=== PATIENT | male | born 1955 | race Caucasian/White ===

== ENCOUNTER 2016-12-23 14:05 | Emergency (ER) | payer OTHER ==
[2016-12-23] MEDS ORDERED: METOPROLOL 5 MG/5 ML VIAL IVP STA (14:32)
[2016-12-23] MEDS ORDERED: NITROGLYCERIN 2% PASTE TOP STA (14:32)
[2016-12-23 14:35] LABS: BASOPHILS % (AUTO) 0.5 %; EOSINOPHILS # (AUTO) 0.1 10^3/uL (0.0-0.7); EOSINOPHILS % (AUTO) 1.1 %; HGB - HEMOGLOBIN 16.9 g/dL (14.0-18.0); LYMPHOCYTES # (AUTO) 3.2 10^3/uL (1.5-3.5); LYMPHOCYTES % (AUTO) 42.2 %; MEAN CORPUSCULAR HEMOGLOBIN 30.4 pg (27.0-31.0); MEAN CORPUSCULAR HGB CONC 33.8 g/dL (32.0-36.0); MEAN PLATELET VOLUME 8.1 fL (7.4-11.4); MONOCYTES # (AUTO) 0.9 10^3/uL (0.0-1.0); MONOCYTES % (AUTO) 11.3 %; NEUTROPHILS # (AUTO) 3.4 10^3/uL (1.5-6.6); NEUTROPHILS % (AUTO) 44.9 %; RED BLOOD COUNT 5.56 10^6/uL (4.70-6.10); RED CELL DISTRIBUTION WIDTH 13.7 % (12.0-15.0); UNCORRECTED WHITE BLOOD COUNT 7.7 x10^3/uL; WHITE BLOOD COUNT 7.7 x10^3/uL (4.8-10.8)
[2016-12-23] MEDS ORDERED: METOPROLOL 5 MG/5 ML VIAL IVP ONE (14:36)
[2016-12-23] MEDS ORDERED: NITROGLYCERIN 2% PASTE TOP ONE (14:36)
--- NOTE | 2016-12-23 14:36 | ED Physician Documentation ---
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 Developed severe substernal chest pain at rest at 1pm today rad to jaw and L arm but not back. No pedal edema or calf pain. Also nauseous. Review of Systems Ten Systems: 10 systems reviewed and negative Constitutional: denies: Fever, Chills Nose: denies: Rhinorrhea / runny nose, Congestion Cardiac: denies: Pedal edema, Calf pain Respiratory: denies: Hemoptysis, Wheezing GI: denies: Abdominal Pain, Constipation PD PAST MEDICAL HISTORY - Past Medical History Past Medical History: Yes Cardiovascular: OK Other Past Medical History: Hepatitis C - Past Surgical History Past Surgical History: Yes General: Splenectomy - Present Medications Home Medications: Ambulatory Orders Medication Instructions Recorded Confirmed Aspirin 325 mg PO DAILY 12/23/16 12/23/16 Atorvastatin [Lipitor] 10 mg PO DAILY 12/23/16 12/23/16 Valsartan 40 mg PO DAILY 12/23/16 12/23/16 - Allergies Allergies/Adverse Reactions: Allergies Allergy/AdvReac Type Severity Reaction Status Date / Time No Known Drug Allergies Allergy Verified 12/23/16 14:18 - Social History Does the pt smoke?: No Smoking Status: Never smoker Does the pt drink ETOH?: Yes Does the pt have substance abuse?: No - Family History Family history: reports: Non contributory PD ED PE NORMAL - Vitals Vital signs reviewed: Yes - General General: Alert and oriented X 3, No acute distress - HEENT HEENT: PERRL, EOMI - Neck Neck: Supple, no meningeal sign, No bony TTP - Cardiac Cardiac: RRR, No murmur - Respiratory Respiratory: No respiratory distress, Clear bilaterally, Other (B arm BPs are equivalent) - Abdomen Abdomen: Normal bowel sounds, Soft, Non tender - Extremities Extremities: No edema, No calf tenderness / cord - Neuro Neuro: Alert and oriented X 3, Normal speech - Psych Psych: Normal mood, Normal affect Results - Vitals Vitals: Vital Signs - 24 hr 12/23/16 12/23/16 14:16 14:58 Temperature 37.0 C Heart Rate 88 81 Respiratory 16 Rate Blood Pressure 155/99 H 177/80 H O2 Saturation 100 97 Oxygen O2 Source Room air - EKG (time done) 1423 Rate: Rate (enter#) (79) Rhythm: NSR [place]: Normal Intervals: RBBB Ischemia: ST depression (V1-V3) Compare to prior EKG: Old EKG unavailable (but will try to get most recent from ) Computer interpretation: Agree with computer 1446 Rate: Rate (enter#) (70) Rhythm: NSR [place]: Normal Intervals: RBBB Ischemia: ST depression (anterior) Compare to prior EKG: Unchanged from prior EKG (no change from 20 min prior) Computer interpretation: Agree with computer - Labs Labs: Laboratory Tests 12/23/16 12/23/16 12/23/16 14:16 14:16 14:16 WBC 7.7 RBC 5.56 Hgb 16.9 Hct 50.0 MCV 90.0 MCH 30.4 MCHC 33.8 RDW 13.7 Plt Count 320 MPV 8.1 Neut # 3.4 Lymph # 3.2 [place] # 0.9 Eos # 0.1 Baso # 0.0 Absolute Nucleated RBC 0.00 Nucleated RBCs 0.0 Sodium 138 Potassium 3.4 L Chloride 100 L Carbon Dioxide 28 Anion Gap 10.0 BUN 18 Creatinine 1.0 Estimated GFR (MDRD) 75 L Glucose 89 Calcium 10.1 Total Bilirubin 0.9 AST 34 ALT 39 Alkaline Phosphatase 74 Troponin I < 0.04 Total Protein 7.8 Albumin 4.6 Globulin 3.2 Albumin/Globulin Ratio 1.4 Lipase 34 PD MEDICAL DECISION MAKING - ED course ED course: 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 1st EKG is concerning, but pt states "my EKG is always abnormal, I was previously misdaignosed as having an OK in [facility] after my bypass." Will try to get most recent EKG from for comparison. EKG received from [facility], dated December 2012. At that time he a normal sinus rhythm with mild and nonspecific T-wave abnormalities especially anteriorly, it is documented that "right bundle-branch is no longer present" so presume he previously had a right bundle branch. At this point it does seem likely that his EKG changes today are acute and [facility] was called for transfer at [address] Sneha De Jesus there at 1525, req nitro gtt, not paste. Recommmends [facility] Departure - Departure Disposition: 02 Transfer Acute Care Hosp Clinical Impression: Acute electrocardiogram changes Chest pain Qualifiers: Chest pain type: unspecified Qualified Code(s): R07.9 - Chest pain, unspecified Condition: Serious
[2016-12-23 14:44] LABS: ALBUMIN/GLOBULIN RATIO 1.4 (1.0-2.2); BILIRUBIN,TOTAL 0.9 mg/dL (0.2-1.0); CALCIUM 10.1 mg/dL (8.5-10.3); POTASSIUM 3.4 mmol/L (3.5-5.0); TOTAL PROTEIN 7.8 g/dL (6.7-8.2)
[2016-12-23] MEDS ORDERED: MORPHINE 2 MG/ML SYRINGE IVP STA (14:47)
[2016-12-23] MEDS ORDERED: ONDANSETRON 4 MG/2 ML VIAL IVP STA (14:47)
[2016-12-23] MEDS ORDERED: MORPHINE 2 MG/ML SYRINGE ONE (14:48)
[2016-12-23] MEDS ORDERED: ONDANSETRON 4 MG/2 ML VIAL ONE (14:48)
[2016-12-23] MEDS ORDERED: HEPARIN 5,000 UNIT/ML VIAL IVP ONE (14:56)
[2016-12-23] MEDS ORDERED: HEPARIN 25,000 UNITS/500 ML 500 ML IV STA (14:56)
[2016-12-23 14:59] VITALS: BP 177/80
[2016-12-23] MEDS ORDERED: HEPARIN 5,000 UNIT/ML VIAL ONE (15:03)
[2016-12-23] MEDS ORDERED: HEPARIN 25,000 UNITS/500 ML 500 ML IV ONE (15:03)
--- NOTE | 2016-12-23 15:21 | XRAY Preliminary Report ---
Exam: XR Chest 1 View IMPRESSION: Post CABG. No radiographically evident acute cardiopulmonary abnormality. [facility] SITE ID: [id number]
--- NOTE | 2016-12-23 15:24 | XRAY Report ---
EXAM: CHEST RADIOGRAPHY EXAM DATE: 12/23/2016 03:01 PM. CLINICAL HISTORY: Nausea. Severe substernal chest pain. COMPARISON: None. TECHNIQUE: 1 view. FINDINGS: Lungs/Pleura: No focal opacities are evident. No pleural effusion or pneumothorax. Mediastinum: Postoperative changes of prior CABG. Heart size is normal. The aorta is tortuous. Other: Old fracture deformities of the left posterior third and fourth ribs. IMPRESSION: Post CABG. No radiographically evident acute cardiopulmonary abnormality. [facility] Referring Provider Line: [phone] SITE ID: [id number]
[2016-12-23] MEDS ORDERED: NITROGLYCERIN 50 MG/250 ML 250 ML IV ONE (15:39)
[2016-12-23] MEDS ORDERED: NITROGLYCERIN 50 MG/250 ML 250 ML IV SCH (16:00)
== END 2016-12-23 16:25 | disposition short-term general hospital (02) ==
LOC: ED 14:05
DX: R07.9 Chest pain, unspecified (principal); I45.10 Unspecified right bundle-branch block; R94.31 Abnormal electrocardiogram [ECG] [EKG]; I25.10 Atherosclerotic heart disease of native coronary artery without angina pectoris; Z95.1 Presence of aortocoronary bypass graft; I25.2 Old myocardial infarction; B19.20 Unspecified viral hepatitis C without hepatic coma
CPT/HCPCS: 36415; 71010; 80053; 82550; 82553; 83690; 84484; 85025; 93005; 93010; 96365; 96375; 96376; 99284; 99285; A9270